=== PATIENT | female | born 2000 | race Caucasian/White ===

== ENCOUNTER 2023-01-20 08:39 | Emergency (ER) | payer BC ==
[~2023-01-20] VITALS: Ht 160 cm; Wt 74.8 kg
--- NOTE | 2023-01-20 09:30 | ED Abdominal Pain ---
General Chief Complaint: Abdominal/GI Problems Stated Complaint: CRAMPING | Nursing Triage Note: PT PRESENTS TO ED VIA POV FROM HOME WITH COMPLAINTS OF R LOWER ABDOMINAL PAIN STARTING THIS AM. PT REPORTS PAIN IS WORSE WITH WALKING OR STANDING. PT REPORTS SHE WAS HAVING LOWER BACK PAIN YESTERDAY BUT THAT SEEMS TO HAVE IMPROVED. Source of Information: Patient Exam Limitations: No Limitations History of Present Illness Date Seen by Provider: Jan 20, 2023 Time Seen by Provider: 09:10 Initial Comments This 22-year-old young lady presents to the emergency room with complaints of lower abdominal pain and cramping that started last night. This morning the pain became excruciatingly severe in the right lower quadrant. It has eased up some by the time of exam. She does have pain with standing up and walking. She denies nausea, vomiting, diarrhea, fever, urine changes, change in vaginal discharge, or pain with intercourse. Her last bowel movement was 2 days ago and she denies constipation. She has had a kidney stone previously but states this feels different. Allergies and Home Medications Allergies Coded Allergies: No Known Drug Allergies (Unverified , 01/20/23) Patient Home Medication List Home Medication List Reviewed: Yes Cephalexin (Cephalexin) 500 Mg Tablet, 500 MG PO TID Prescribed by: QUENTIN CAAL on 01/20/23 5417 Review of Systems Review of Systems Constitutional: no symptoms reported EENTM: No Symptoms Reported Respiratory: No Symptoms Reported Cardiovascular: No Symptoms Reported Gastrointestinal: See HPI Genitourinary: See HPI Musculoskeletal: no symptoms reported Skin: no symptoms reported Psychiatric/Neurological: No Symptoms Reported Endocrine: No Symptoms Reported Past [id number] Hx Patient Social History Tobacco Use?: No Substance use?: No Alcohol Use?: No Pt feels they are or have been: No Past Medical History Surgeries: No Respiratory: No Cardiac: No Neurological: No : No Genitourinary: Yes Kidney Stones Gastrointestinal: No Musculoskeletal: No Endocrine: No HEENT: No Cancer: No Psychosocial: No Integumentary: No Physical Exam Vital Signs Vital Signs - First Documented 01/20/23 09:02 Temp 36.6 Pulse 72 Resp 16 B/P (MAP) 112/81 (91) Pulse Ox 100 Capillary Refill : Less Than 3 Seconds Height/Weight/BMI Height: '" Weight: lbs. oz. kg; 29.00 BMI Method: General Appearance: WD/WN, mild distress HEENT: normal ENT inspection Neck: normal inspection Respiratory: lungs clear, normal breath sounds, no respiratory distress Cardiovascular: regular rate, rhythm, no edema, no murmur Gastrointestinal: normal bowel sounds, soft, tenderness (RLQ), other (Positive Rovsing and pain with straight leg raise) Extremities: normal inspection, no pedal edema Back: no CVA tenderness Neurologic/Psychiatric: no motor/sensory deficits, alert, normal mood/affect, oriented x 3 Skin: normal color, warm/dry Progress/Results/Core Measures Results/Orders Lab Results Laboratory Tests Test 01/20/23 09:39 01/20/23 10:17 Range/Units White Blood Count 6.4 4.3-11.0 10^3/uL Red Blood Count 4.58 3.80-5.11 10^6/uL Hemoglobin 13.6 11.5-16.0 g/dL Hematocrit 38 35-52 % Mean Corpuscular Volume 83 80-99 fL Mean Corpuscular Hemoglobin 30 25-34 pg Mean Corpuscular Hemoglobin Concent 36 32-36 g/dL Red Cell Distribution Width 12.6 10.0-14.5 % Platelet Count 183 130-400 10^3/uL Mean Platelet Volume 10.3 9.0-12.2 fL Immature Granulocyte % (Auto) 0 % Neutrophils (%) (Auto) 65 42-75 % Lymphocytes (%) (Auto) 23 12-44 % Monocytes (%) (Auto) 9 0-12 % Eosinophils (%) (Auto) 1 0-10 % Basophils (%) (Auto) 0 0-10 % Neutrophils # (Auto) 4.2 1.8-7.8 10^3/uL Lymphocytes # (Auto) 1.5 1.0-4.0 10^3/uL Monocytes # (Auto) 0.6 0.0-1.0 10^3/uL Eosinophils # (Auto) 0.1 0.0-0.3 10^3/uL Basophils # (Auto) 0.0 0.0-0.1 10^3/uL Immature Granulocyte # (Auto) 0.0 0.0-0.1 10^3/uL Sodium Level 136 135-145 MMOL/L Potassium Level 4.1 3.6-5.0 MMOL/L Chloride Level 107 98-107 MMOL/L Carbon Dioxide Level 23 21-32 MMOL/L Anion Gap 6 5-14 MMOL/L Blood Urea Nitrogen 16 7-18 MG/DL Creatinine 0.73 0.60-1.30 MG/DL Estimat Glomerular Filtration Rate 120 BUN/Creatinine Ratio 22 Glucose Level 86 70-105 MG/DL Calcium Level 8.4 L 8.5-10.1 MG/DL Corrected Calcium 8.4 L 8.5-10.1 MG/DL Total Bilirubin 0.7 0.1-1.0 MG/DL Aspartate Amino Transf (AST/SGOT) 16 5-34 U/L Alanine Aminotransferase (ALT/SGPT) 14 0-55 U/L Alkaline Phosphatase 77 40-136 U/L C-Reactive Protein High Sensitivity 0.15 0.00-0.50 MG/DL Total Protein 6.6 6.4-8.2 GM/DL Albumin 4.0 3.2-4.5 GM/DL Serum Test, Qualitative NEGATIVE NEGATIVE Urine Color YELLOW Urine Clarity SL CLOUDY Urine pH 6.5 5-9 Urine Specific [place] 1.010 L 1.016-1.022 Urine Protein NEGATIVE NEGATIVE Urine Glucose (UA) NEGATIVE NEGATIVE Urine Ketones NEGATIVE NEGATIVE Urine Nitrite NEGATIVE NEGATIVE Urine Bilirubin NEGATIVE NEGATIVE Urine Urobilinogen 0.2 < = 1.0 MG/DL Urine Leukocyte Esterase TRACE H NEGATIVE Urine RBC (Auto) NEGATIVE NEGATIVE Urine RBC NONE /HPF Urine WBC 5-10 H /HPF Urine Squamous Epithelial Cells 2-5 /HPF Urine Crystals NONE /LPF Urine Bacteria MODERATE H /HPF Urine Casts NONE /LPF Urine Mucus NEGATIVE /LPF Urine Other CLUE CELL PRESENT /HPF Urine Culture Indicated YES Micro Results Microbiology 01/20/23 Urine Culture - Final, Complete Growth Consistent My Orders Orders - QUENTIN JONES MD Ua Culture If Indicated (01/20/23 09:10) Cbc With Automated Diff (01/20/23 09:25) Comprehensive Metabolic Panel (01/20/23 09:25) Hs C Reactive Protein (01/20/23 09:25) Hcg,Qualitative Serum (01/20/23 09:25) Ed Iv/Invasive Line Start (01/20/23 09:25) Us Non Ob Pelvis Comp/Transvag (01/20/23 09:25) Urine Culture (01/20/23 10:17) Vital Signs/I&O 01/20/23 01/20/23 09:02 12:46 Temp 36.6 Pulse 72 60 Resp 16 18 B/P (MAP) 112/81 (91) 107/76 Pulse Ox 100 98 Blood Pressure Mean: 91 Progress Progress Note : Progress Note Patient was offered pain medication but declined. Evaluation was pursued including CBC, CRP, serum test, CMP, and urinalysis. All labs were reviewed in their entirety by me. There was subtle indication of urinary tract infection which was treated with antibiotic prescription. Labs were otherwise unremarkable. Results were discussed with the patient. Pelvic ultrasound was also obtained to rule out ovarian torsion or other pelvic pathology identifiable by ultrasound. Ultrasound is essentially unremarkable. We discussed further opportunities for evaluation including CT of the abdomen and pelvis to evaluate for appendicitis or kidney stone. At that point patient was feeling significantly improved without any treatment. Risks and benefits of CT were reviewed. She elected to proceed with careful observation at home with symptom management rather than CT scan. She again declined any medical therapy in the emergency room as she was feeling better. See discharge instructions for further discussion. Diagnostic Imaging Diagonstic Imaging: Ultrasound Plain Films/CT/US/NM/MRI: pelvis Comments NAME: STEVEN [facility]UR[facility] REC#: [id number] PT STATUS: DEP ER : 2001 PHYSICIAN: QUENTIN JONES MD ADMIT DATE: 01/20/23/ER Signed Date of Exam:01/20/23 US NON OB PELVIS COMP/TRANSVAG PROCEDURE: US Non-ob pelvis comp/trans. TECHNIQUE: Multiple realtime grayscale images were obtained of the pelvis in various projections endovaginally. Transabdominal imaging was also performed. INDICATION: Right lower quadrant pain. COMPARISON: None available FINDINGS: The uterus measures 7.4 x 3.4 x 4.3 cm. The myometrium is normal in echogenicity without discrete mass. There is an echogenic shadowing IUD appropriately positioned within the endometrial canal. This results in suboptimal visualization of the endometrium. Right ovary measures 4.1 x 2.3 x 3.9 cm. There is a simple follicle measuring 2.3 cm. Blood flow is present within the right ovary on color Doppler imaging. The left ovary measures 1.6 x 1.4 x 1.7 cm and has blood flow present. A trace amount of free simple pelvic fluid is physiologic. IMPRESSION: 1. No ovarian torsion. 2. Appropriately positioned IUD. Dictated by: Dictated on workstation # [id number] Dict: 01/20/23 1029 Trans: 01/20/23 1346 [id number] Interpreted by: JV MCGARRY MD Electronically signed by: JV MCGARRY MD 01/20/23 1346 Departure Impression Primary Impression: Right lower quadrant abdominal pain Additional Impression: Urinary tract infection Qualified Codes: N39.0 - Urinary tract infection, site not specified Disposition: HOME, SELF-CARE Condition: Improved Departure-Patient Inst. Referrals: SATISH AGEE MD (PCP/Family) Primary Care Physician Patient Instructions: Severe Abdominal Pain, Adult (DC), Urinary Tract Infection, Adult ED Add. Discharge Instructions: Drink plenty of clear liquids to stay well-hydrated and urinate often. Complete your antibiotics as prescribed. Your urine culture should be reviewed next week. You may do so with your primary care provider. If your primary care provider is not available or you do not have one, you may contact the emergency room at the number above. You may take ibuprofen up to 600 mg every 6 hours as needed and/or Tylenol (acetaminophen) up to 1000 mg every 6 hours as needed for pain. Return to the ER if you have worsening symptoms despite following these instructions or if you develop new symptoms such as fever, episodes of vomiting, escalating pain despite using Tylenol and ibuprofen, etc. All discharge instructions reviewed with patient and/or family. Voiced understanding. Scripts Cephalexin (Cephalexin) 500 Mg Tablet 500 MG PO TID, #20 TAB Prov: QUENTIN JONES MD 01/20/23 QUENTIN JONES MD Jan 20, 2023 09:30
[2023-01-20 09:47] LABS: BASOPHILS % (AUTO) 0 % (0-10); EOSINOPHILS # (AUTO) 0.1 10^3/uL (0.0-0.3); EOSINOPHILS % (AUTO) 1 % (0-10); HEMATOCRIT 38 % (35-52); HEMOGLOBIN 13.6 g/dL (11.5-16.0); LYMPHOCYTES # (AUTO) 1.5 10^3/uL (1.0-4.0); LYMPHOCYTES % (AUTO) 23 % (12-44); MEAN CORPUSCULAR HEMOGLOBIN 30 pg (25-34); MEAN CORPUSCULAR HGB CONC 36 g/dL (32-36); MEAN CORPUSCULAR VOLUME 83 fL (80-99); MEAN PLATELET VOLUME 10.3 fL (9.0-12.2); MONOCYTES # (AUTO) 0.6 10^3/uL (0.0-1.0); MONOCYTES % (AUTO) 9 % (0-12); NEUTROPHILS # (AUTO) 4.2 10^3/uL (1.8-7.8); NEUTROPHILS % (AUTO) 65 % (42-75); PLATELET COUNT 183 10^3/uL (130-400); WHITE BLOOD COUNT 6.4 10^3/uL (4.3-11.0)
[2023-01-20 09:56] LABS: POTASSIUM 4.1 MMOL/L (3.6-5.0)
[2023-01-20 09:57] LABS: CALCIUM 8.4 MG/DL (8.5-10.1)
[2023-01-20 10:03] LABS: BILIRUBIN,TOTAL 0.7 MG/DL (0.1-1.0); CREATININE SERUM 0.73 MG/DL (0.60-1.30); TOTAL PROTEIN 6.6 GM/DL (6.4-8.2)
[2023-01-20 10:21] LABS: BILIRUBIN,URINE NEGATIVE (NEGATIVE); CLARITY,URINE SL CLOUDY; COLOR,URINE YELLOW; GLUCOSE, URINE (UA) NEGATIVE (NEGATIVE); KETONES,URINE NEGATIVE (NEGATIVE); LEUKOCYTE ESTERASE ,URINE TRACE (NEGATIVE); NITRITE,URINE NEGATIVE (NEGATIVE); PH,URINE 6.5 (5-9); PROTEIN,URINE NEGATIVE (NEGATIVE)
[2023-01-20 10:29] LABS: BACTERIA,URINE MODERATE /HPF
[2023-01-20 10:30] LABS: URINE OTHER CLUE CELL PRESENT /HPF
--- NOTE | 2023-01-20 10:38 | Diagnostic Imaging Report ---
PROCEDURE: US Non-ob pelvis comp/trans. TECHNIQUE: Multiple realtime grayscale images were obtained of the pelvis in various projections endovaginally. Transabdominal imaging was also performed. INDICATION: Right lower quadrant pain. COMPARISON: None available FINDINGS: The uterus measures 7.4 x 3.4 x 4.3 cm. The myometrium is normal in echogenicity without discrete mass. There is an echogenic shadowing IUD appropriately positioned within the endometrial canal. This results in suboptimal visualization of the endometrium. Right ovary measures 4.1 x 2.3 x 3.9 cm. There is a simple follicle measuring 2.3 cm. Blood flow is present within the right ovary on color Doppler imaging. The left ovary measures 1.6 x 1.4 x 1.7 cm and has blood flow present. A trace amount of free simple pelvic fluid is physiologic. IMPRESSION: 1. No ovarian torsion. 2. Appropriately positioned IUD. Dictated by: Dictated on workstation # [id number]
[2023-01-20] MEDS ORDERED: CEPH500T PO (12:37)
[2023-01-20 12:46] VITALS: BP 107/76
== END 2023-01-20 12:46 | disposition home or self-care (01) ==
LOC: ER 08:43
DX: N39.0 Urinary tract infection, site not specified (principal); Z87.442 Personal history of urinary calculi; Z28.310 Unvaccinated for COVID-19
CPT/HCPCS: 36415; 76830; 76856; 80053; 81000; 84703; 85025; 86141; 87088